=== PATIENT | male | born 1970 | race Caucasian/White ===

== ENCOUNTER 2017-10-27 16:30 | Emergency (ER) | payer SELFPAY ==
[~2017-10-27] VITALS: Ht 177.8 cm; Wt 88.5 kg
[2017-10-27] MEDS ORDERED: NS(*) 0.9% 1000 ML BAG 1,000 ML IV ONE ×2 (16:46→18:55)
[2017-10-27] MEDS ORDERED: ONDANSETRON 4 MG/2 ML VIAL IVP ONE (16:50)
--- NOTE | 2017-10-27 16:53 | ER Report ---
History and Physical Time Seen By MD: 16:36 Hx. of Stated Complaint: STENT REMOVED FROM ABDOMEN ON MONDAY. NOW HAS N/V, CONSTIPATION, AND SHARP ABDOMINAL PAIN. HPI/ROS CHIEF COMPLAINT: Abdominal pain, vomiting HISTORY OF PRESENT ILLNESS: Patient is a 47-year-old male who presents the ED with complaint of abdominal pain and vomiting for the past day. He states that he was initially diagnosed with a large pancreatic cyst about 5 weeks ago and had surgery to drain this area as well as a stent placed. He states that 2 days ago he had the stent removed and also had an endoscopy at this time. He states that he did call his surgeon and they advised him to go didn't the emergency room due to concern for dehydration. He states that he did have a number CT completed about 3 weeks ago which showed that the cyst was no longer there. He states that his pain is on epigastric region. He feels it is putting pressure on his ribs. He denies any fever. He also has been having issues with constipation for the past couple weeks. He states that he has not had a bowel movement for the past 3 days. He denies any black or bloody bowel movements. He denies any blood in his emesis. He has not noted any chest pain or shortness of breath. He states that he does have an appointment to follow-up with surgery next week regarding coloscopy and follow-up. He had all these procedures completed at the [facility]. REVIEW OF SYSTEMS: Constitutional: No fever, no chills. Eyes: No discharge. ENT: No sore throat. Cardiovascular: No chest pain, no palpitations. Respiratory: No cough, no shortness of breath. Gastrointestinal: See history of present illness. Genitourinary: No hematuria. Musculoskeletal: No back pain. Skin: No rashes. Neurological: No headache. Allergies: Coded Allergies: No Known Drug Allergies (Verified , 10/25/14) Home Meds Discontinued Reported Medications [None] No Conflict Check 10/25/14 Reviewed Nurses Notes: Yes Old Medical Records Reviewed: Yes Hx Smoking: Yes Smoking Status: Current: Every Day Smoker Hx Substance Use Disorder: No Constitutional Vital Sign - Last 24 Hours 10/27/17 16:30 Temp 97.5 Pulse 80 Resp 16 B/P (MAP) 113/92 Pulse Ox 96 O2 Delivery Room Air Intake and Output 1/10/0210/27/17 10/28/17 15:00 23:00 07:00 Intake Total 1000 ml Balance 1000 ml Physical Exam General Appearance: The patient is alert, has no immediate need for airway protection and no signs of toxicity. Patient appears to be in some mild distress. Eyes: Pupils equal and round no pallor or injection. ENT, Mouth: Mucous membranes are moist. Respiratory: There are no retractions, lungs are clear to auscultation. Cardiovascular: Regular rate and rhythm. Gastrointestinal: There is epigastric and left upper quadrant as well as some right upper quadrant tenderness with palpation. Equivocal Pulido sign. Normal bowel sounds in all 4 quadrants. No rebound or guarding is appreciated. Skin: Warm and dry, no rashes. Musculoskeletal: Neck is supple non tender. Extremities are nontender, nonswollen and have full range of motion. DIFFERENTIAL DIAGNOSIS: After history and physical exam differential diagnosis was considered for abdominal pain including but not limited to appendicitis, cholecystitis, gastritis and urinary tract infection. Medical Decision Making Data Points Result Diagram: 10/27/17 1653 10/27/17 1653 Laboratory Hematology Test 10/27/17 16:53 10/27/17 18:45 Red Blood Count 5.65 M/uL (4.00-5.60) Mean Corpuscular Volume 86.0 fL (80.0-96.0) Mean Corpuscular Hemoglobin 29.2 pg (26.0-33.0) Mean Corpuscular Hemoglobin Concent 34.0 g/dL (32.0-36.0) Red Cell Distribution Width 15.1 % (11.5-14.5) Mean Platelet Volume 9.1 fL (7.2-11.1) Neutrophils (%) (Auto) 72.8 % (39.4-72.5) Lymphocytes (%) (Auto) 18.8 % (17.6-49.6) Monocytes (%) (Auto) 6.0 % (4.1-12.4) Eosinophils (%) (Auto) 1.5 % (0.4-6.7) Basophils (%) (Auto) 0.9 % (0.3-1.4) Nucleated RBC Relative Count (auto) 0.1 /100WBC Neutrophils # (Auto) 9.5 K/uL (2.0-7.4) Lymphocytes # (Auto) 2.5 K/uL (1.3-3.6) Monocytes # (Auto) 0.8 K/uL (0.3-1.0) Eosinophils # (Auto) 0.2 K/uL (0.0-0.5) Basophils # (Auto) 0.1 K/uL (0.0-0.1) Nucleated RBC Absolute Count (auto) 0.01 K/uL Peripheral Blood Smear No Y/N Sodium Level 143 mmol/L (137-145) Potassium Level 3.7 mmol/L (3.5-5.0) Chloride Level 103 mmol/L (98-107) Carbon Dioxide Level 27 mmol/L (22-30) Blood Urea Nitrogen 10 mg/dl (9-21) Creatinine 0.80 mg/dl (0.66-1.25) Glomerular Filtration Rate Calc > 60.0 Random Glucose 101 mg/dl (75-110) Calcium Level 9.9 mg/dl (8.4-10.2) Total Bilirubin 0.7 mg/dl (0.2-1.3) Aspartate Amino Transf (AST/SGOT) 16 U/L (0-35) Alanine Aminotransferase (ALT/SGPT) 30 U/L (0-56) Alkaline Phosphatase 108 U/L (0-126) Total Protein 7.9 gm/dl (6.3-8.2) Albumin 4.4 g/dl (3.5-5.0) Lipase 1664 U/L (23-300) Chemistry Test 10/27/17 16:53 10/27/17 18:45 White Blood Count 13.1 k/uL (4.5-11.0) Red Blood Count 5.65 M/uL (4.00-5.60) Hemoglobin 16.5 g/dL (14.0-18.0) Hematocrit 48.5 % (42.0-52.0) Mean Corpuscular Volume 86.0 fL (80.0-96.0) Mean Corpuscular Hemoglobin 29.2 pg (26.0-33.0) Mean Corpuscular Hemoglobin Concent 34.0 g/dL (32.0-36.0) Red Cell Distribution Width 15.1 % (11.5-14.5) Platelet Count 236 K/uL (150-450) Mean Platelet Volume 9.1 fL (7.2-11.1) Neutrophils (%) (Auto) 72.8 % (39.4-72.5) Lymphocytes (%) (Auto) 18.8 % (17.6-49.6) Monocytes (%) (Auto) 6.0 % (4.1-12.4) Eosinophils (%) (Auto) 1.5 % (0.4-6.7) Basophils (%) (Auto) 0.9 % (0.3-1.4) Nucleated RBC Relative Count (auto) 0.1 /100WBC Neutrophils # (Auto) 9.5 K/uL (2.0-7.4) Lymphocytes # (Auto) 2.5 K/uL (1.3-3.6) Monocytes # (Auto) 0.8 K/uL (0.3-1.0) Eosinophils # (Auto) 0.2 K/uL (0.0-0.5) Basophils # (Auto) 0.1 K/uL (0.0-0.1) Nucleated RBC Absolute Count (auto) 0.01 K/uL Peripheral Blood Smear No Y/N Glomerular Filtration Rate Calc > 60.0 Calcium Level 9.9 mg/dl (8.4-10.2) Total Bilirubin 0.7 mg/dl (0.2-1.3) Aspartate Amino Transf (AST/SGOT) 16 U/L (0-35) Alanine Aminotransferase (ALT/SGPT) 30 U/L (0-56) Alkaline Phosphatase 108 U/L (0-126) Total Protein 7.9 gm/dl (6.3-8.2) Albumin 4.4 g/dl (3.5-5.0) Lipase 1664 U/L (23-300) Urinalysis Test 10/27/17 18:45 EKG/Imaging Imaging CT Abdomen/Pelvis: IMPRESSION: 1. Resolution of the large pseudocyst previously seen posterior to the stomach. 2. Multiple small pseudocysts adjacent to the proximal pancreatic body, pancreatic head and descending portion of the duodenum as before one of which is new measuring 1.1 cm. Two of these cysts have decreased in size and one is unchanged in size. 3. Multiple varices adjacent to the stomach are either increased or are better visualized given resolution of the previously seen perigastric cyst. These may be related to thrombosis of the distal splenic vein. 4. Prominence of the inferior gastric mucosa is favored to represent submucosal varices. These may be increased compared to prior or are now visible secondary to resolution of the previously seen perigastric pseudocyst. Gastric wall thickening related to gastritis is an alternative consideration. 5. 9 mm right hepatic lobe hypodensity has increased in size and conspicuity. This may represent a cyst which is more visible on current exam secondary to slight differences in timing. A metastatic lesion or hepatic abscess are felt less likely but cannot be entirely excluded given interval change. Short-term CT follow-up could be utilized to ensure stability as needed. 6. Multiple unchanged pancreatic calcifications. Unchanged diffuse pancreatic duct mild enlargement. 7. Minimal peripancreatic edema has increased, acute pancreatitis cannot be excluded. Results were called to LISA LARES on 18 6:16 PM. Report Dictated By: King Pineda MD at 10/27/2017 5:52 PM Report E-Signed By: King Pineda MD at 10/27/2017 6:17 PM ED Course/Re-evaluation Clinical Indication for ER IV: Hydration ED Course Patient will be given 1 L normal saline bolus and 4 mg IV Zofran for nausea and vomiting relief. Will get labs and CT of the abdomen/pelvis. 10/27/2017 6:52:45 pm - discussed labs and imaging with patient. It appears that he does have some acute pancreatitis. He also has some varices noted on a CT. Discussed this with him and he does not believe hearing that he had prior CTs before. He denies any alcohol use currently. Patient was given 2 mg IV morphine and 12.5 mg IV Phenergan for nausea and pain relief. Discussed patient with Dr. Rivas, hospitalist, who was not comfortable with the patient especially given his recent hospital stays at [facility] due to his pancreas and advised for transfer to [facility] at this time. Discussed patient with Dr. Dio Austin, hospitalist at [facility], who will accept patient under his care. 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 Rivas, Hospitalist Dr. Dio Austin, Hospitalist at [facility] Dr. Quezada, ED Problem Qualifiers Primary Impression: Acute pancreatitis Pancreatitis type: unspecified pancreatitis type Acute pancreatitis complication: unspecified Qualified Codes: K85.90 - Acute pancreatitis without necrosis or infection, unspecified LISA LARES PA-C Oct 27, 2017 16:53
[2017-10-27 17:02] LABS: PLATELET COUNT, AUTOMATED 236 K/uL (150-450)
[2017-10-27] MEDS ORDERED: PROMETHAZINE 25 MG/ML 1 ML AMP IVP ONE (18:20)
[2017-10-27] MEDS ORDERED: MORPHINE 2 MG/ML SYR IVP ONE (18:20)
--- NOTE | 2017-10-27 18:20 | RADIOLOGY IMAGING REPORT ---
FACILITY: [facility] [place] PATIENT NAME: Raul Canales : 1970 MR: [id number] V: [id number] EXAM DATE: ORDERING PHYSICIAN: LISA LARSE TECHNOLOGIST: Location: [facility] [place] Patient: Raul Canales : 1970 Visit/Account:[id number] Date of Sevice: 10/27/2017 EXAMINATION: Abdomen and pelvis CT with contrast HISTORY: Abdominal pain, history of pancreatic cyst drainage, vomiting TECHNIQUE: CT was performed through the abdomen and pelvis following injection of iodinated intrave nous contrast. Sagittal and coronal MPR reformatted images were generated. 75 mL isovue 370 injected . One of the following dose optimization techniques was utilized in the performance of this exam: autom ated exposure control; adjustment of the mA and/or kV according to patient size; or use of iterative reconstruction technique. Specific details can be referenced in the facility's radiology CT exam ope rational policy. COMPARISON: 09/21/2017 FINDINGS: Lower chest: Normal. Spleen: Normal. Adrenal glands: Normal. Pancreas: Multiple pancreatic calcifications as before. Minimal fat stranding surrounding the pancrea s has increased. Mild diffuse pancreatic ductal dilatation has not definitively changed. New 1.1 cm cyst in the proximal pancreatic body, axial image 45. 2.4 cm cyst between the pancreatic h ead and descending duodenum is unchanged in size. Additional 1.3 cm cyst adjacent to the descending p ortion of the duodenum, image 52 has decreased in size. Additional 10 mm cyst adjacent to this portio n of the duodenum has decreased in size, axial image 46. The previously seen cyst posterior to the stomach is no longer present. Multiple perigastric varices are present which are new or have increased in number. Kidneys: Normal. Gallbladder: Normal. Liver: A few subcentimeter unchanged hepatic cysts. Right hepatic lobe 9 mm hypodensity, image 24 has increased in size and conspicuity. Vessels: The proximal to mid splenic vein appears patent. The distal splenic vein is not well visuali zed and is likely thrombosed. Lymph node assessment: Normal. Bowel including small bowel, colon and appendix: Thickening gastric body inferior mucosa, axial image 34. Normal small bowel. Normal appendix. No colonic abnormality. Peritoneum / retroperitoneum / mesentery: Normal. Pelvic structures: Normal bladder, normal prostate and normal rectum. No pelvic fluid or adenopath y. Body wall: Normal. Musculoskeletal: No fracture or osseous destruction. IMPRESSION: 1. Resolution of the large pseudocyst previously seen posterior to the stomach. 2. Multiple small pseudocysts adjacent to the proximal pancreatic body, pancreatic head and descendin g portion of the duodenum as before one of which is new measuring 1.1 cm. Two of these cysts have dec reased in size and one is unchanged in size. 3. Multiple varices adjacent to the stomach are either increased or are better visualized given resol ution of the previously seen perigastric cyst. These may be related to thrombosis of the distal splen ic vein. 4. Prominence of the inferior gastric mucosa is favored to represent submucosal varices. These may be increased compared to prior or are now visible secondary to resolution of the previously seen periga stric pseudocyst. Gastric wall thickening related to gastritis is an alternative consideration. 5. 9 mm right hepatic lobe hypodensity has increased in size and conspicuity. This may represent a cy st which is more visible on current exam secondary to slight differences in timing. A metastatic lesi on or hepatic abscess are felt less likely but cannot be entirely excluded given interval change. Maryellen rt-term CT follow-up could be utilized to ensure stability as needed. 6. Multiple unchanged pancreatic calcifications. Unchanged diffuse pancreatic duct mild enlargement. 7. Minimal peripancreatic edema has increased, acute pancreatitis cannot be excluded. Results were called to LISA LARES on 6:16 PM. Report Dictated By: King Pineda MD at 10/27/2017 5:52 PM Report E-Signed By: King Pineda MD at 10/27/2017 6:17 PM WSN:[id number]
[2017-10-27 19:15] VITALS: BP 123/99
== END 2017-10-27 19:38 | disposition short-term general hospital (02) ==
LOC: ER 16:32
DX: K85.90 Acute pancreatitis without necrosis or infection, unspecified (principal); K86.3 Pseudocyst of pancreas; I86.4 Gastric varices
CPT/HCPCS: 74177; 81001; 83690; 85025; 96361; 96374; 96375; 99285; J2270; J2405; J2550; J7030; J7050; Q9967; 82040; 82247; 82310; 82374; 82435; 82565; 82947; 84075; 84132; 84155; 84295; 84450; 84460; 84520

== ENCOUNTER → 2017-10-27 | Outpatient (CLI) | payer SELFPAY | LOC: AMB 19:24 | PROVIDERS: ATTEND Nurse Practitioner | DX: K85.90 Acute pancreatitis without necrosis or infection, unspecified (principal) | CPT/HCPCS: A0425; A0426 ==

== ENCOUNTER → 2017-11-24 | Outpatient (CLI) | payer SELFPAY ==
[~2017-11-24] MED LIST: IOPAMIDOL 76% 75 ML INFUS BTL 75 ML ONE; NS 0.9% 20 ML SDV 20 ML ONE
[2017-11-24 11:26] LABS: PLATELET COUNT, AUTOMATED 454 K/uL (150-450)
--- NOTE | 2017-11-24 13:26 | RADIOLOGY IMAGING REPORT ---
FACILITY: [facility] PATIENT NAME: Raul Canales : 1970 MR: [id number] V: [id number] EXAM DATE: ORDERING PHYSICIAN: ALTAF CHOWDHURY TECHNOLOGIST: [place] [facility] [place]ul Can[place] : 1970 Visit/Account:[id number] Date of Sevice: 11/24/2017 EXAMINATION: CT Abdomen W/O Contrast CT Abdomen W/ Contrast CT Pelvis W/O Contrast CT Pelvis W/ Contrast 11/24/2017 11:55 AM HISTORY: Chronic pancreatitis. Elevated lipase. Assess for acute exacerbation. TECHNIQUE: Spiral scans were obtained through the abdomen and pelvis before and during injection of nonionic iodinated intravenous contrast. Contrast: 75 mL of IV Isovue 370. One of the following dose optimization techniques was utilized in the performance of this exam: Autom ated exposure control; adjustment of the mA and/or kV according to the patient's size; or use of an i terative reconstruction technique. Specific details can be referenced in the facility's radiology C T exam operational policy. COMPARISON STUDIES: 10/27/2017. FINDINGS: Liver / biliary: Heterogeneous fatty liver with focal sparing adjacent to the man. Small liver cys ts. No acute biliary finding. Pancreas: Numerous calcifications of chronic pancreatitis with stable mild prominence of the distal p ancreatic duct. Edematous infiltration around the margins of the gland has not changed substantially from the prior. Some of the more organized small collections along the pancreatic head, the largest of which previously measured 2.4 cm are improved, with the largest now measuring about 1.3 cm. No h emorrhage or necrosis is evident. Spleen: Negative Adrenal glands: negative Kidneys / retroperitoneum: negative Pelvic structures: negative Bowel / peritoneum / mesenteries: GJ tube extends well into the jejunum past the ligament of Treitz. Vessels: The confluence of the SMV and portal vein is markedly attenuated than previously although st ill patent without visible thrombus. Samish splenic vein appears to be thrombosed with left upper qu adrant collateralization. Atherosclerotic vascular calcifications. Mesenteric vasculature is grossl y patent. Musculoskeletal / Body wall: negative Lymph node assessment: negative Lower chest: negative IMPRESSION: 1. Background features of chronic pancreatitis with superimposed acute peripancreatic edema. The pe ripancreatic edematous inflammation is similar to October although some of the pseudocysts along the pancreatic head are improved. 2. 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 Report Dictated By: Odin Petersen MD at 11/24/2017 1:05 PM Report E-Signed By: Odin Petersen MD at 11/24/2017 1:21 PM WSN:[email or web address]
== END ==
LOC: CT 11:08
PROVIDERS: ATTEND Surgery
DX: K86.1 Other chronic pancreatitis (principal); I82.891 Chronic embolism and thrombosis of other specified veins
CPT/HCPCS: 36415; 74178; 82248; 83690; 85025; J7050; Q9967; 82040; 82247; 82310; 82374; 82435; 82565; 82947; 84075; 84132; 84155; 84295; 84450; 84460; 84520